=== PATIENT | male | born 1955 | race Caucasian/White ===

== ENCOUNTER 2023-06-08 09:44 | Emergency (ER) | payer MEDICARE ==
--- OUTSIDE RECORDS SUMMARY | 2023-06-08 09:50 | XMS REPORT | Continuity of Care Document ---
:1955 Author Organization [facility] t Address [address] [facility] [address] [place] [address] Care Team Providers Name Role Phone JONNY DOWD Primary Care Physician Unavailable Sabrina Naranjo Attending Clinician Unavailable Deepti Beal Attending Clinician Unavailable Maren Acharya Attending Clinician Unavailable Marta Tripathi Attending Clinician Grace Attending Clinician Unavailable RAZA MARTE Attending Clinician Unavailable [facility] Attending Clinician Unavailable SANDRA VALLE Attending Clinician Unavailable Sandra Valle DC Attending Clinician MARNIE FRITZ Attending Clinician Unavailable THAD MALIK Attending Clinician Unavailable TRE BURGESS Attending Clinician Unavailable 1, [employer] COHERENCE TOMOGRAPHY Attending Clinician UnavailRaza Cruz MD Attending Clinician Raza Marte OD Attending Clinician LAB47 Attending Clinician Unavailable Marnie Fritz PA-C Attending Clinician Thad Malik MD Attending Clinician MARTA ANN Attending Clinician Unavailable MAN CORTEZ Attending Clinician Unavailable Grace Admitting Clinician Unavailable Payers Payer Name Policy Type Policy Number Effective Date Expiration Date S ource [facility] [employer] [place] [id number] 2022 (MEDICARE 00:00:00 REPLACEMENT HMO) [employer] MAPD - HMO 2019 7 [id number] 2021 R2T 00:00:00 Problems Condition Condition Condition Status Onset Resolution Last Treating Co mments Source Name Details Category Date Date Treatment Clinician Date Type 2 Type 2 Disease Active 2020-08 Inna diabetes diabetes 0-20 Seybol d mellitus mellitus 00:00: with with 00 hyperlipid hyperlipid emia emia Primary Primary Disease Active 2020-08 Inna hypertensi hypertensi 0-20 Se ybold on on 00:00: 00 Amputation Amputation Disease Active 2020-08 Vineet alaniz of toe of of toe of 0-20 Seyb old left foot left foot 00:00: 00 History of History of Disease Active 2020-08 Vineet alaniz bariatric bariatric 0-20 Seyb old surgery surgery 00:00: 00 Age-relate Age-relate Disease Active 2020-08 Vineet alaniz d cataract d cataract 0-20 Se ybold of both of both 00:00: eyes eyes 00 Chronic Chronic Disease Active 2020-08 Inna low back low back 0-20 Seybol d pain pain 00:00: without without 00 sciatica sciatica Status Status Disease Active 2020-08 Inna post post 0-20 Seybold amputation amputation 00:00: of great of great 00 toe, left toe, left Hyperlipid Hyperlipid Disease Active 2020-08 Vineet alaniz emia emia 0-20 Seybold 00:00: 00 Status Status Disease Active 2020-08 Inna post post 0-20 Seybold amputation amputation 00:00: of lesser of lesser 00 toe, left toe, left [id number] Lesion of Problem Co mmon 00402 ulnar Spirit nerve, - [facility] right upper limb [facility] [id number] Pain in Problem Commo n joint of Spirit left wrist - [facility] [id number] Other Problem Common obesity Spirit due to - [facility] excess [facility] [id number] [place] [address] tunnel Spirit syndrome - [facility] of left [facility] [id number] Screening Problem Com mon for Spirit prostate - [facility] cancer [facility] [id number] [place] 228[address] tunnel Spirit syndrome - [facility] of right [facility] [id number] 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, - [facility] bilateral [facility] [id number] 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 - [facility] of both [facility] [id number] Body mass Problem Com mon index Spirit [BMI] - [facility] 33.0-33.9, [facility] [id number] History of Problem Co mmon gastric Spirit surgery - [facility] [id number] Pain in Problem Commo n joint of Spirit right - [facility] wrist [facility] Allergies, Adverse Reactions, Alerts Allergy Allergy Status Severity Reaction(s) Onset Inactive Treating Comm ents Source Name Type Date Date Clinician NO KNOWN Drug Active Univers ALLERGIE Class ity [facility] Social History Social Habit Start Date Stop Date Quantity Comments Source History SDOH Inna galloway Alcohol Std Drinks History SDOH Inna galloway Alcohol Binge History SDOH Inna galloway Alcohol Comment Exposure to Not sure Inna servin SARS-CoV-2 (event) History of Tobacco Current Smoker Co mmon Spirit - Use [facility] Sex Assigned At Common Sp vinh - [facility] Alcohol intake 2021-07-03 2021-07-03 Lifetime Inna Campbell bold 00:00:00 00:00:00 non-drinker (finding) Tobacco use and 2021-06-10 2021-06-10 Smokeless tobacco Ke rachel Buttsybnadeen exposure 00:00:00 00:00:00 non-user History SDOH 2021-06-10 2021-06-10 1 Inna galloway Alcohol Frequency 00:00:00 00:00:00 Smoking Status Start Date Stop Date Source Current Smoker 2022-09-27 00:00:00 Common Spiri t - [facility] Never smoked tobacco Inna senior Medications Ordered Filled Start Stop Current Ordering Indication Dosage Frequency Signature Comments Components Source Medication Medication Date Date Medication? Clinician (SIG) Name Name Multiple 2020-08 Yes 3{capsu Take 3 Ivonne ey Vitamin 2-20 le} capsules Seybold (Multivitam 11:25: by mouth ins) oral 37 daily Capsule Bariatric Advantage Multivitam in Formula without Iron Multiple 2020-08 Yes 3{capsu Take 3 Ivonne ey Vitamin 2-16 le} capsules Seybold (Multivitam 12:53: by mouth ins) oral 00 daily Capsule Bariatric Advantage Multivitam in Formula without Iron Multiple 2020-08 Yes 3{capsu Take 3 Ivonne ey Vitamin 1-12 le} capsules Seybold (Multivitam 10:16: by mouth ins) oral 55 daily Capsule Bariatric Advantage Multivitam in Formula without Iron Multiple 2020-08 Yes 3{capsu Take 3 Ivonne ey Vitamin 0-20 le} capsules Seybold (Multivitam 08:40: by mouth ins) oral 14 daily Capsule Bariatric Advantage Multivitam in Formula without Iron Multiple 2020-08 Yes 3{capsu Take 3 Ivonne ey Vitamin 0-20 le} capsules Seybold (Multivitam 08:40: by mouth ins) oral 14 daily Capsule Bariatric Advantage Multivitam in Formula without Iron Sod 2020-08 Yes [id number] Instructio Ke lsey Picosulfate 0-20 n given to Se ybold -Mag Ox-Cit 00:00: patient in [facility]cd 00 clinic. (Clenpiq) Use as 10-3.5-12 directed MG-GM by -GM/160ML provider oral during Solution office visit. Sod 2020-08 Yes [id number] Instructio Ke lsey Picosulfate 0-20 n given to Se ybold -Mag Ox-Cit 00:00: patient in [facility]cd 00 clinic. (Clenpiq) Use as 10-3.5-12 directed MG-GM by -GM/160ML provider oral during Solution office visit. Sod 2020-08 Yes [id number] Instructio Ke lsey Picosulfate 0-20 n given to Se ybold -Mag Ox-Cit 00:00: patient in [facility]cd 00 clinic. (Clenpiq) Use as 10-3.5-12 directed MG-GM by -GM/160ML provider oral during Solution office visit. Sod 2020-08 Yes [id number] Instructio Ke lsey Picosulfate 0-20 n given to Se ybold -Mag Ox-Cit 00:00: patient in [facility]cd 00 clinic. (Clenpiq) Use as 10-3.5-12 directed MG-GM by -GM/160ML provider oral during Solution office visit. Multi Multi Yes Rios not Common Vitamin Vitamin Hyman defined Spir [facility] Calcium Calcium Yes Rios not Common Hyman defined [facility] Vitamin D Vitamin D Yes Rios not Com mon Hyman defined [facility] Fish Oil Fish Oil Yes Rios not Commo n Boogie defined [facility] Bariatric Bariatric No QD Bariatric Multivitami Multivitami Multivitam ns/Iron - ns/Iron - ins/Iron - Vital Signs Vital Name Observation Time Observation Value Comments Source height 2022-09-27 15:20:00 70.5 [in_i] [facility] weight 2022-09-27 15:20:00 253.2 [lb_av] [facility] temperature 2022-09-27 15:20:00 97.9 [degF] [facility] bmi 2022-09-27 15:20:00 35.81 kg/m2 [facility] oximetry 2022-09-27 15:20:00 96 % [facility] respiratory rate 2022-09-27 15:20:00 18 /min Comm on [facility] blood pressure 2022-09-27 15:20:00 138 mm[Hg] [facility] - systolic [facility] blood pressure 2022-09-27 15:20:00 84 mm[Hg] [facility] - diastolic [facility] Systolic blood 2021-07-03 16:14:00 128 mm[Hg] Inna Seybold pressure Diastolic blood 2021-07-03 16:14:00 74 mm[Hg] Kelse y Seybold pressure Heart rate 2021-07-03 16:14:00 56 /min Inna armenta Body temperature 2021-07-03 16:14:00 36.67 Patti Ivonne ey Seybold Respiratory rate 2021-07-03 16:14:00 16 /min Ivonne ey Seybold Body weight 2021-07-03 16:14:00 101.515 kg Inna armenta BMI 2021-07-03 16:14:00 31.21 kg/m2 Inna S eybold Systolic blood 2021-06-10 16:14:00 133 mm[Hg] Inna Seybold pressure Diastolic blood 2021-06-10 16:14:00 71 mm[Hg] Kelse y Seybold pressure Heart rate 2021-06-10 16:14:00 63 /min Inna S eybold Body temperature 2021-06-10 16:14:00 36.61 Patti Ivonne ey Seybold Respiratory rate 2021-06-10 16:14:00 16 /min Ivonne ey Seybold Body height 2021-06-10 16:14:00 180.3 cm Inna Jacinto eybold Body weight 2021-06-10 16:14:00 100.699 kg Inna Jacinto eybold BMI 2021-06-10 16:14:00 30.96 kg/m2 Inna S eybold Systolic blood 2021-06-10 13:38:00 132 mm[Hg] Inna Seybold pressure Diastolic blood 2021-06-10 13:38:00 70 mm[Hg] Kelse y Seybold pressure Heart rate 2021-06-10 13:38:00 60 /min Inna Jacinto eybold Body temperature 2021-06-10 13:38:00 36.67 Patti Ivonne ey Seybold Respiratory rate 2021-06-10 13:38:00 16 /min Ivonne thakkar Seybold Body height 2021-06-10 13:38:00 181.6 cm Inna Jacinto eybold Body weight 2021-06-10 13:38:00 100.608 kg Inna Jacinto eybold BMI 2021-06-10 13:38:00 30.50 kg/m2 Inna thakkarbold Procedures This patient has no known procedures. Encounters Start End Encounter Admission Attending Care Care Encounter Source Date/Time Date/Time Type Type Clinicians Facility Department ID 2023-06-[address] [facility] [id number] Common 09:28:00 Sabrina [id number] [facility] 2023-04-[address] [facility] [id number] Common 08:30:00 Sabrina [id number] [facility] 2023-04-[address] [facility] [id number] Common 11:54:00 Sabrina [id number] [facility] 2022-10-15 Outpatient Coal, STLMLC STLMLC [id number] Common 09:37:00 Deepti [id number] [facility] 2022-09-27 Outpatient Coal, STLMLC STLMLC [id number] Common 15:12:01 Deepti [id number] [facility] 2022-09-23 Outpatient Coal, STLMLC STLMLC [id number] Common 09:30:00 Deepti [id number] [facility] 2022-08-30 Outpatient Coal, STLMLC STLMLC [id number] Common 11:22:00 Deepti [id number] [facility] 2022-07-22 Outpatient Patrizia, STLMLC STLMLC [id number] Common 09:00:01 Maren [id number] [facility] 2023-03-17 2023-03-17 MARISSA Lozano 2.16.840. [id number]. [facility] [id number] Devoted 18:00:00 18:30:00 Revisit: Bhumi [id number] Medical Gap [id number] Closure & [id number] Clinical Check-in 2023-01-07 2023-01-07 Outpatient Czerwinski_ DMG DMG [id number] [facility]oted 00:00:00 00:00:00 K 48877 [facility] 2023-01-07 2023-01-07 Outpatient Czerwinski_ DMG DMG [id number] Devoted 00:00:00 00:00:00 K 84752 Medica l Group 2022-12-25 2022-12-25 Outpatient Czerwinski_ DMG DMG [id number] Devoted 00:00:00 00:00:00 K 23233 Medica l Group 2022-09-27 2022-09-27 OFFICE STLMLC STLC [id number] Co mmon 00:00:00 00:00:00 VISIT [facility] PT LEVEL 4 [facility] 2022-09-17 2022-09-17 [facility] 2.16.840. 2.16.840.1. CLAC [id number] Devoted 13:30:00 14:30:00 Bhumi [id number] [facility] [id number] 2022-09-13 2022-09-13 Outpatient Czerwinski_ DMG DMG [id number] Devoted 00:00:00 00:00:00 K [id number] Medica l Group 2022-08-09 2022-08-09 Outpatient INNA MARTE [id number] Inna 11:00:00 11:00:00 RAZA Seybol d 2022-06-16 2022-06-16 Outpatient ANGELINE JUNIOR [id number] Inna 14:00:00 14:00:00 Seybol d 2022-06-11 2022-06-11 Outpatient INNA VALLE [id number] Inna 10:15:00 10:15:00 SANDRA Seybol d 2022-06-06 2022-06-06 Outpatient DMG DMG [id number] [facility] 00:00:00 00:00:00 [id number] [facility] 2022-06-04 2022-06-04 Outpatient INNA VALLE [id number] Inna 10:15:00 10:15:00 SANDRA Seybol d 2022-05-21 2022-05-21 Outpatient INNA VALLE [id number] Inna 10:15:00 10:15:00 SANDRA Seybol d 2022-05-14 2022-05-14 Outpatient INNA VALLE [id number] Inna 10:15:00 10:15:00 SANDRA Seybol d 2022-05-07 2022-05-07 Outpatient INNA VALLE [id number] Inna 09:45:00 09:45:00 SANDRA Seybol d 2022-04-30 2022-04-30 Outpatient INNA VALLE [id number] Inna 11:00:00 11:00:00 SANDRA Seybol d 2022-03-26 2022-03-26 Office VICKY Valle [id number] Inna 10:30:00 11:00:00 Visit Sandra Carson [id number] Se ybold [id number] 2022-03-26 2022-03-26 Outpatient INNA SERVIN [id number] Inna 10:50:00 10:50:00 Seybol d 2022-03-26 2022-03-26 Outpatient INNA SERVIN [id number] Inna 10:45:00 10:45:00 Seybol d 2021-12-21 2021-12-21 Outpatient INNA FRITZ [id number] Inna 00:00:00 00:00:00 MARNIE Seyb old 2021-12-21 2021-12-21 Outpatient FRITZINNA [id number] Inna 00:00:00 00:00:00 MARNIE Seyb old 2021-10-26 2021-10-26 Outpatient FRITZ, INNA SERVIN [id number] Inna 00:00:00 00:00:00 MARNIE Seyb old 2021-09-01 2021-09-01 Outpatient INNA MALIK [id number] Inna 00:00:00 00:00:00 THAD Seybol d 2021-08-27 2021-08-27 Outpatient DANAEINNA KOCH [id number] Inna 10:00:00 10:00:00 THAD Seybol d 2021-08-27 2021-08-27 Outpatient INNA BURGESS [id number] Inna 00:00:00 00:00:00 TRE Seybol d 2021-08-10 2021-08-10 Outpatient 1, OPTICAL INNA SERVIN [id number] Inna 11:30:00 11:30:00 Seybol d 2021-08-10 2021-08-10 Office Marisabelchiquitajarad PATRICK 1.2.840.114 [id number] Inna 11:20:00 11:30:00 Visit [facility] [id number] Se ybold 1.2.7.2.686 [id number] 2021-08-06 2021-08-06 Office Estuardo, PATRICK 1.2.840.114 [id number] Inna 13:20:00 13:40:00 Visit Raza Canela VITALIY 350.1.13.13 S geovany 1.2.7.2.686 [id number] 2021-07-31 2021-07-31 Outpatient ESTUARDO, INNA SERVIN [id number] Inna 08:00:00 08:00:00 RAZA Seybol d 2021-07-14 2021-07-14 Outpatient LAB47 INNA SERVIN [id number] Inna 09:50:00 09:50:00 Seybol d 2021-07-03 2021-07-03 Office VICKY Fritz 1.2.840.114 [id number] Inna 10:10:14 10:40:14 Visit Marnie 350.1.13.13 Seybold 1.2.7.2.686 [id number] 2021-07-03 2021-07-03 Outpatient FRITZ, INNA SERVIN [id number] Inna 00:00:00 00:00:00 MARNIE Seyb old 2021-06-30 2021-06-30 Outpatient FRITZ, INNA SERVIN [id number] Inna 00:00:00 00:00:00 MARNIE Gamble old 2021-06-12 2021-06-12 Outpatient FRITZ, INNA SERVIN [id number] Inna 00:00:00 00:00:00 MARNIE Seyb old 2021-06-10 2021-06-10 Office VICKY Malik 1.2.840.114 [id number] Inna 11:09:02 11:24:02 Visit Thad Jacinto [id number] Se ybold 1.2.7.2.686 [id number] 2021-06-10 2021-06-10 Outpatient LAB47 INNA SERVIN [id number] Inna 09:35:00 09:35:00 Seybol d 2021-06-10 2021-06-10 Office VICKY Fritz 1.2.840.114 [id number] Inna 08:14:57 08:44:57 Visit Marnie 350.1.13.13 Seybold [id number] [id number] 2021-06-08 2021-06-08 Outpatient INNA FRITZ INNA [id number] Inna 08:00:00 08:00:00 MARNIE senior 2021-06-04 2021-06-04 Outpatient MARTA ANN INNA SERVIN [id number] Inna 00:00:00 00:00:00 Seybol d 2020-11-29 2020-11-29 Outpatient Magda [facility] [id number] Univers 15:15:00 09:29:25 [facility] 2020-11-08 2020-11-08 Outpatient Magda [facility] [id number] Univers 16:00:00 16:00:00 [facility] 2018-12-12 2018-12-14 Outside nullFlavo MNA [id number] Memoria 15:41:00 04:59:59 Medical r Neurology 01 l Records Ramona Rodriguez 2018-12-12 2018-12-14 Outside nullFlavo MNA [id number] Memoria 15:41:00 04:59:59 Medical r Neurology 01 l Records Ramona Rodriguez 2018-12-12 2018-12-13 Outpatient MHMISCHER MHMISCHER [id number] 10:41:00 23:59:59 2018-10-31 2018-10-31 Out[facility] [id number] Common 10:30:00 10:30:00 [facility] 2018-10-23 2018-10-23 Outpatient [facility] [id number] Common 14:00:00 14:00:00 t [facility] - [facility] 2018-10-17 2018-10-17 Outpatient MHIE MHIE [id number] Memoria 09:30:00 09:30:00 65 l Michael 2018-10-17 2018-10-17 Outpatient IE JUANI [id number] Memoria 09:30:00 09:30:00 65 l Michael Results This patient has no known results.
[2023-06-08] MEDS ORDERED: LIDOCAINE 4% PATCH ONE (10:50)
[2023-06-08] MEDS ORDERED: dexAMETHasone 10 MG/ML VIAL ONE (10:50)
[2023-06-08] MEDS ORDERED: HYDROCODONE/APAP 7.5/325 MG TAB ONE (10:50)
--- NOTE | 2023-06-08 11:41 | RAD REPORT ---
EXAM DESCRIPTION: CT - Spine Lumbar Wo Con - 06/08/2023 10:33 am CLINICAL HISTORY: Radiculopathy. PAIN COMPARISON: No comparisons TECHNIQUE: Axial noncontrast CT imaging of the lumbar spine was performed with coronal and sagittal re-formatted images. All CT scans are performed using dose optimization technique as appropriate and may include automated exposure control or mA/KV adjustment according to patient size. FINDINGS: No acute lumbar spine fracture seen. No aggressive marrow pattern or malalignment. Paraspinal tissues are normal in thickness. No paraspinal abscess or hematoma seen. Spondylosis is noted lower lumbar levels. There is a prominent posterior disc bulge with facet and li gamentum flavum hypertrophy L4-5. There is evidence of significant central canal narrowing at this le aliyah. There is a 20 mm stone in the left renal pelvis and additional 12 mm stone in the inferior calyx left kidney. IMPRESSION: Significant central canal stenosis suspected at L4-5. Large 20 mm stone left renal pelvis and 12 mm stone inferior calyx left kidney.
--- NOTE | 2023-06-08 11:47 | EDPHYS ---
Physician Documentation [facility] Name: Elan Gloria Age: 68 yrs Sex: Male : 1955 Arrival Date: 06/08/2023 Time: 09:44 Bed 12 Private MD: ED Physician Fercho Carter HPI: 06/08 12:46 This 68 yrs old Male presents to ER via Wheelchair with complaints of Back Pain. kb 12:46 The patient presents with pain that is acute, and tenderness. The symptoms are located kb in the lumbar area. Onset: The symptoms/episode began/occurred 5 day(s) ago. The pain does not radiate. Associated signs and symptoms: The patient has no apparent associated signs or symptoms. The problem was sustained when lifting. Modifying factors: The patient symptoms are alleviated by rest, the patient symptoms are aggravated by any movement. Severity of symptoms: At their worst the symptoms were moderate, in the emergency department the symptoms are unchanged. The patient has not experienced similar symptoms in the past. The patient has not recently seen a physician. Pt reports he was lifting his greatgranddaughter a lot on Tuesday and loaded/unloaded his wifes chair 4 times that day. States he has had low back pain since then. Denies injury or trauma. States pain is with any movement, goes away at rest. Has been to chiropractor twice and massage therapist this morning without relief. . Historical: - Allergies: 10:14 No Known Allergies; iw - Immunization history:: Client reports receiving the 2nd dose of the Covid vaccine. - Social history:: Smoking status: Patient denies any tobacco usage or history of. ROS: 12:43 Constitutional: Negative for fever, chills, and weight loss, kb 12:43 Back: Positive for pain with movement, of the lumbar area, 12:43 All other systems are negative, Exam: 12:43 Constitutional: This is a well developed, well nourished patient who is awake, alert, kb and in no acute distress. Head/Face: Normocephalic, atraumatic. ENT: Moist Mucous membranes Cardiovascular: Regular rate Respiratory: Respirations even and unlabored. No increased work of breathing. Talking in full sentences Abdomen/GI: Soft, non-tender. No distention Skin: Warm, dry with normal turgor. Normal color. MS/ Extremity: Pulses equal, no cyanosis. Neurovascular intact. Full, normal range of motion. Neuro: Awake and alert, GCS 15, oriented to person, place, time, and situation. Moves all extremities. Normal gait. 12:43 Back: CVA tenderness, is absent, vertebral tenderness, is appreciated at lumbar spine, 12:53 Neuro: Exam negative for acute changes, kb Vital Signs: 10:12 BP 172 / 72; Resp 16; Temp 98.1; Pulse Ox 100% ; iw 10:33 Weight 108.86 kg; iw MDM: 10:01 Patient medically screened. kb 12:44 Differential diagnosis: chronic back pain, Fracture Osteoarthritis sprain. Data kb reviewed: vital signs, nurses notes. Counseling: I had a detailed discussion with the patient and/or guardian regarding the historical points, exam findings, and any diagnostic results supporting the discharge/admit diagnosis, radiology results, the need for outpatient follow up, a family practitioner, to return to the emergency department if symptoms worsen or persist or if there are any questions or concerns that arise at home. 06/08 10:16 Order name: CT Lumbar Spine Wo Con; Complete Time: 11:43 kb Administered Medications: 10:48 Drug: Dexamethasone IM 10 mg IM once Route: IM; Site: left gluteus; iw 11:51 Follow up: Response: No adverse reaction ap3 10:53 Drug: Hydrocodone-Acetaminophen PO (7.5 mg-325 mg) 1 tabs PO once Route: PO; iw 11:51 Follow up: Response: No adverse reaction; Pain is decreased ap3 10:53 Drug: Lidoderm Topical Patch 5 % (700 mg/patch) 1 patches Topical once; leave on for 12 iw hours; cover most painful area; may cut into smaller pieces Route: Topical; Site: affected area; 11:51 Follow up: Response: No adverse reaction ap3 Disposition: 16:51 Co-signature as Attending Physician, Fercho Carter MD I reviewed the patient's care rt provided by the Advanced Practice Provider and agree with the diagnosis and treatment plan. Disposition Summary: 06/08/23 11:46 Discharge Ordered Notes: Location: Home kb Condition: Stable kb Diagnosis - Pain in thoracic spine kb Followup: kb - With: Emergency Department - When: As needed - Reason: Worsening of condition Followup: kb - With: Private Physician - When: 2 - 3 days - Reason: Recheck today's complaints, Continuance of care, Re-evaluation by your physician Discharge Instructions: - Discharge Summary Sheet kb - Lumbar Strain kb Forms: - Medication Reconciliation Form kb - Thank You Letter kb - Antibiotic Education kb - Prescription Opioid Use kb - Patient Portal Instructions kb - Leadership Thank You Letter kb Prescriptions: - Prednisone 20 mg Oral Tablet - take 1 tablet ORAL route once daily for 5 days; 5 tablet; Refills: 0, Product kb Selection Permitted - orphenadrine citrate 100 mg Oral Tablet Sustained Release - take 1 tablet ORAL route 2 times per day As needed; 20 tablet; Refills: 0, kb Product Selection Permitted Signatures: Dispatcher [employer] EDKristal Dotson, SHELL MOLDER-C SHELL MOLDER-Stefanie Scott, RN Leah Vaz RN RN ap3 Fercho Carter MD MD rt
--- NOTE | 2023-06-08 11:47 | ER ---
Nurse's Notes [facility] Name: Elan Gloria Age: 68 yrs Sex: Male : 1955 Arrival Date: 06/08/2023 Time: 09:44 Bed 12 Private MD: Diagnosis: Pain in thoracic spine Presentation: 06/08 10:12 Chief complaint: Patient states: lumbar pain since Tuesday afternoon , was lifting iw great grandchild this weekend. Coronavirus screen: At this time, the client does not indicate any symptoms associated with coronavirus-19. Ebola Screen: Patient negative for fever greater than or equal to 101.5 degrees Fahrenheit, and additional compatible Ebola Virus Disease symptoms Patient denies exposure to infectious person. Patient denies travel to an Ebola-affected area in the 21 days before illness onset. No symptoms or risks identified at this time. Initial Sepsis Screen: Does the patient meet any 2 criteria? No. Patient's initial sepsis screen is negative. Does the patient have a suspected source of infection? No. Patient's initial sepsis screen is negative. Risk Assessment: Do you want to hurt yourself or someone else? Patient reports no desire to harm self or others. 10:12 Method Of Arrival: Wheelchair iw 10:12 Acuity: MARIP[place] 4 iw 11:52 Onset of symptoms is unknown. ap3 Historical: - Allergies: 10:14 No Known Allergies; iw - Immunization history:: Client reports receiving the 2nd dose of the Covid vaccine. - Social history:: Smoking status: Patient denies any tobacco usage or history of. Screenin:51 [facility] ED Fall Risk Assessment (Adult) History of falling in the last 3 months, ap3 including since admission No falls in past 3 months (0 pts). Abuse screen: Denies threats or abuse. Nutritional screening: No deficits noted. Tuberculosis screening: No symptoms or risk factors identified. Assessment: 10:15 General: Appears in no apparent distress. Behavior is calm, cooperative. Pain: iw Complains of pain in back. Neuro: Level of Consciousness is awake, alert, obeys commands, Oriented to person, place, time, situation, Moves all extremities. Vital Signs: 10:12 BP 172 / 72; Resp 16; Temp 98.1; Pulse Ox 100% ; iw 10:33 Weight 108.86 kg; iw ED Course: 09:49 Patient arrived in ED. mg5 10:01 Kristal Quiles F[facility]-C [facility]. kb 10:01 Fercho Carter MD is Attending Physician. kb 10:14 Triage completed. iw 10:14 Stefanie Tavera, RN is Primary Nurse. iw 10:14 Arm band placed on. iw 10:35 CT Lumbar Spine Wo Con In Process Unspecified. EDMS 11:52 Provided Education on: discharge instructions. ap3 11:52 Patient has correct armband on for positive identification. Bed in low position. Call ap3 light in reach. 11:52 No provider procedures requiring assistance completed. Patient did not have IV access ap3 during this emergency room visit. Administered Medications: 10:48 Drug: Dexamethasone IM 10 mg IM once Route: IM; Site: left gluteus; iw 11:51 Follow up: Response: No adverse reaction ap3 10:53 Drug: Hydrocodone-Acetaminophen PO (7.5 mg-325 mg) 1 tabs PO once Route: PO; iw 11:51 Follow up: Response: No adverse reaction; Pain is decreased ap3 10:53 Drug: Lidoderm Topical Patch 5 % (700 mg/patch) 1 patches Topical once; leave on for 12 iw hours; cover most painful area; may cut into smaller pieces Route: Topical; Site: affected area; 11:51 Follow up: Response: No adverse reaction ap3 Medication: 10:15 VIS not applicable for this client. iw Outcome: 11:46 Discharge ordered by . kb 11:52 Discharged to home ambulatory, with family, ap3 11:52 Condition: good 11:52 Discharge instructions given to patient, Instructed on discharge instructions, follow up and referral plans. medication usage, Demonstrated understanding of instructions, follow-up care, medications, Prescriptions given X 2, 11:52 Patient left the ED. ap3 Signatures: Dispatcher [employer] EDMS Kristal Quiles FNP-C FNP-Ckb Williams, Irene RN STEFANY iw Leah Au RN RN ap3 Carole Lam mg5
[2023-06-08 12:11] VITALS: BP 172/72; TEMP 98.1; O2SAT 100
== END 2023-06-08 11:52 | disposition home or self-care (01) ==
LOC: ER 09:44
DX: M54.6 Pain in thoracic spine (principal)
CPT/HCPCS: 72131; J2001; J1100

== ENCOUNTER 2024-01-17 06:06 | Day surgery (SDC) | payer MEDICARE ==
[2024-01-09 14:08] LABS: Absolute Basophils 0.1 K/uL (0-0.5); Absolute Eosinophils 0.1 K/uL (0-0.5); Absolute Lymphocytes (CBC) 2.4 K/uL (0.7-4.9); Absolute Monocytes 1.9 K/uL (0.1-1.3); Absolute Neutrophil 4.6 K/uL (1.8-8.0); Eosinophils % 1.1 % (0-4.4); Hematocrit 43.4 % (39.6-49.0); Hemoglobin 14.6 g/dL (13.6-17.9); Lymphocytes % 25.9 % (15.3-44.8); MCH 32.5 pg (27.0-35.0); MCHC 33.8 g/dL (32.0-36.0); MCV 96.2 fL (80-100); MPV 9.5 fL (7.6-11.3); Monocytes % 21.1 % (3.3-12.3); Neutrophils % 50.9 % (41.7-73.7); PT Prothrombin Time 12.9 SECONDS (9.5-12.5); Platelets 192 thou/uL (152-406); Protime INR 1.18; RBC Red Blood Cell Count 4.51 M/uL (4.33-5.43); Red Cell Distribution Width 12.8 % (12.1-15.2)
[2024-01-09 14:19] LABS: Anion Gap 7.8 mEq/L (5.0-15.0); Potassium 3.8 mEq/L (3.5-5.1)
--- NOTE | 2024-01-09 14:36 | RAD REPORT ---
EXAM DESCRIPTION: Win Baker (2 Views)01/09/2024 1:18 pm CLINICAL HISTORY: Preop for lithotripsy COMPARISON: None FINDINGS: The lungs appear clear of acute infiltrate. The heart is normal size IMPRESSION: No acute abnormalities displayed
[2024-01-09 15:33] LABS: Blood Morphology Comment NOT SEEN (NOT SEEN); Platelet Estimate ADEQ; White Blood Cell Scan OK (OK)
--- NOTE | 2024-01-12 15:15 | EKG ---
Test Date: 2024-01-09 Test Time: 12:58:45 [employer] Operator: ANNE MEASUREMENT RESULTS: Intervals: Rate: 65 [place]: 280 QRSD: 98 QT: 394 QTc: 409 [place]: P: 83 [place]: 280 QRS: 17 T: 66 INTERPRETIVE STATEMENTS: Sinus rhythm with 1st degree AV block Otherwise normal ECG Compared to ECG 01/03/2001 11:09:00 First degree AV block now present Sinus bradycardia no longer present Electronically Signed On 01-12-24 15:02:51 CDT by Dinesh Vicente
[2024-01-17] MEDS: Ringers Lactate 1,000 ML IV ONE (06:30)
[2024-01-17] MEDS ORDERED: propofoL 200 MG/20 ML VIAL IV ONE (07:16)
[2024-01-17] MEDS ORDERED: LIDOCAINE 1% MPF 5 ML VIAL ONE (07:16)
[2024-01-17] MEDS ORDERED: FENTANYL CITR 100 MCG/2 ML ONE (07:17)
[2024-01-17] MEDS ORDERED: MIDAZOLAM HCL 2 MG/2 ML INJ ONE (07:17)
[2024-01-17] MEDS: CEFAZOLIN SODIUM 2 GM/VIAL ONE (07:32)
[2024-01-17] MEDS ORDERED: dexAMETHasone 4 MG/ML VIAL ONE (07:51)
[2024-01-17] MEDS ORDERED: ONDANSETRON 4 MG/2 ML VIAL ONE (07:51)
[2024-01-17] MEDS ORDERED: CODEINE 30MG/APAP 300MG TAB PO PRN (09:20)
[2024-01-17 09:56] VITALS: O2SAT 97
[2024-01-17 11:01] VITALS: BP 164/84; TEMP 97.1
--- NOTE | 2024-01-17 18:59 | OP ---
Surgeon: MICHAEL BURCIAGA Preoperative Diagnosis: Large volume left nephrolithiasis/staghorn renal calculus. Postoperative Diagnoses: 1.Large volume left nephrolithiasis/staghorn renal calculus. 2.Meatal stenosis. Principal Procedures: 1.Meatal dilation using sounds. 2.Cystoscopy with left ureteral stent placement. 3.Left ESWL/extracorporeal shockwave lithotripsy. Indication For Procedure: Mr. Gloira presented to the Urology Clinic as a recurrent stone former wit h a large left renal pelvic and lower pole calculus observed on imaging. He was counseled on options for management to include the sandwich ESWL approach versus PCNL and elected the former. I counsele d him that if we were not successful at least achieving partial fragmentation of the stone sufficient to justify the sandwich approach, we would have him proceed with PCNL. Procedure Note In Detail: The patient was consented in the preoperative holding area before being tr ansferred to the operative suite for general anesthesia. He was given Ancef 2 g IV antimicrobial pro phylaxis, and pneumo boots were provided for DVT prophylaxis. He was placed in lithotomy position, p added and secured to the table appropriately, and his genitalia were prepped with Hibiclens before be ing draped in standard fashion. The case was begun by using a 22-[place] rigid cystoscope to try to e nter the meatus, but this was aborted due to stenosis. As a result, I utilized urethral sounds to di late the meatus to 26-[place] and then used a 22-[place] cystoscope now to traverse past the point of s tenosis via the urethra and into the bladder with ease. I decompressed his bladder of fluid and urin e and then utilized a 5-[place] ureteral access catheter to gain access into the left ureteral orifice and distal ureter. I then passed a Sensor wire via the 5-[place] ureteral access catheter and the wi re did fluoroscopically coil superior and around the stone known to reside in the renal pelvis on the left. As a result, I passed a 6-[place] x 28 cm double-J ureteral stent over the wire coiling it abo ve the stone in the upper pole calyx with one cystoscopically formed in his bladder. I then decompre ssed his bladder of fluid and urine and removed the cystoscope. The patient was taken out of the lit hotomy position and then appropriately positioned for shockwave lithotripsy. Left ESWL: Shockwave lithotripsy was then performed after targeting of the stone in the AP and dorsa l ventral positions and initially starting with a power of 4 and increasing over the course of about 700 shocks to a power of 7. A 2 minute pause was given at around 200 shocks. Shockwave lithotripsy was then continued at a rate of 1 hertz over the course of the entirety of a total of 3000 shocks del ivered. There was some partial fragmentation that did seem to occur with the lower portion lateral a spect of the stone breaking off from the main stone mass, but the majority of the mass did largely se em to remain intact. As a result, the patient was transferred to a stretcher and then transferred to the recovery room in good condition. Complications: None. Discharge Disposition: The patient will need a KUB performed no sooner than 2 weeks from now and nathaly uld follow up in the Urology Clinic within the next 2 to 4 weeks to review the KUB and determine if h e is an appropriate candidate to continue with the sandwich approach or if we need to switch course a nd proceed with definitive PCNL. MONA/MEGGAN Voice ID: [id number] Report ID: [id number]
== END 2024-01-17 10:30 | disposition home or self-care (01) ==
LOC: OR 06:06
PROVIDERS: ATTEND Urology
PROC: 0T778DZ Dilation of Left Ureter with Intraluminal Device, Via Natural or Artificial Opening Endoscopic (ICD-10-PCS; 2024-01-17)
PROC: 0TF4XZZ Fragmentation in Left Kidney Pelvis, External Approach (ICD-10-PCS; principal; 2024-01-17 07:30)
DX: N20.0 Calculus of kidney (principal); N35.911 Unspecified urethral stricture, male, meatal; R33.8 Other retention of urine
CPT/HCPCS: 50590 ×2; 52332; 93005; 87088; 85025; 87086; 80048; 36415; 85610; 71046; J2704; J1100; J2001; J2250; J3010; J2405; J7120